=== PATIENT | male | born 1965 | race Caucasian/White ===

== ENCOUNTER 2017-01-19 00:16 | Emergency (ER) | payer BC ==
[~2017-01-19] VITALS: Ht 167.6 cm; Wt 75.8 kg
[~2017-01-19 00:16] MED LIST: AUGMENTIN875 MG OR; AUGMENTIN875TAB PO; CRESTOR10 MG OR; FAMVIR500 MG PO; FLONASE0.05 %; FLORASTOR250 M1 PO; METRONIDAZOLE500 MG PO; NEXIUM20 M1 PO; PHENERGAN25 MG/TAB PO; SANCUSO TD; SUCRALFATE1 GM PO; TOPROL XL50 MG PO; XANAX0.25 MG PO; ZOFRAN4 M1 PO; ZOVIRAX52 TOP
[2017-01-19 01:10] VITALS: BP 136/84
== END 2017-01-19 01:10 | disposition left against medical advice (07) | DRG 951 ==
LOC: ED 00:16 → LWOBS 00:59
DX: Z91.19 Patient's noncompliance with other medical treatment and regimen (principal)

== ENCOUNTER 2017-04-04 21:24 | Emergency (ER) | payer BC ==
[~2017-04-04] VITALS: Ht 167.6 cm; Wt 79.0 kg
[2017-04-04] MEDS ORDERED: BAYER ASPIRIN E81 MG PO (21:50)
[2017-04-04] MEDS ORDERED: ELIQUIS5 MG PO (21:52)
[2017-04-04] MEDS ORDERED: CYANOCOBAL1000 MCG/M IM (21:52)
[2017-04-04] MEDS ORDERED: NEURONTIN300 MG PO ×2 (21:54→21:55)
[2017-04-04] MEDS ORDERED: FAMVIR500 MG PO (21:56)
[2017-04-04] MEDS ORDERED: ZYRTEC10 MG PO (21:58)
[2017-04-04] MEDS ORDERED: AMOXICILLIN500 MG PO (22:42)
[2017-04-04 22:45] VITALS: BP 136/70
== END 2017-04-04 22:40 | disposition home or self-care (01) | DRG 605 ==
LOC: ED 21:24
DX: S00.512A Abrasion of oral cavity, initial encounter (principal); R58 Hemorrhage, not elsewhere classified; X58.XXXA Exposure to other specified factors, initial encounter; Z79.82 Long term (current) use of aspirin; Z79.01 Long term (current) use of anticoagulants

== ENCOUNTER 2017-05-08 11:56 | Emergency (ER) | payer BC ==
[~2017-05-08 11:56] MED LIST changes: +AMOXICILLIN500 MG PO; +BAYER ASPIRIN E81 MG PO; +CYANOCOBAL1000 MCG/M IM; +ELIQUIS5 MG PO; +NEURONTIN300 MG PO; +ZYRTEC10 MG PO
== END 2017-05-08 12:36 | disposition left against medical advice (07) | DRG 951 ==
LOC: ED 11:56 → LWOBS 12:24
DX: Z91.19 Patient's noncompliance with other medical treatment and regimen (principal)

== ENCOUNTER 2017-05-08 13:21 | Emergency (ER) | payer BC ==
[~2017-05-08] VITALS: Ht 167.6 cm; Wt 82.0 kg
[2017-05-08 14:15] VITALS: BP 126/71
== END 2017-05-08 14:15 | disposition left against medical advice (07) | DRG 951 ==
LOC: ED 13:21
DX: Z91.19 Patient's noncompliance with other medical treatment and regimen (principal)

== ENCOUNTER 2017-07-05 23:01 | Emergency (ER) | payer BC ==
[~2017-07-05] VITALS: Ht 167.6 cm; Wt 72.6 kg
[2017-07-05] MEDS ORDERED: SINGULAIR10 MG PO (23:20)
[2017-07-05] MEDS ORDERED: LASIX 40 MG TAB40 MG PO (23:20)
[2017-07-05] MEDS ORDERED: POTASSIUM CHLO20 ME1 PO (23:21)
[2017-07-05 23:43] VITALS: BP 161/90
== END 2017-07-05 23:43 | disposition left against medical advice (07) | DRG 69 ==
LOC: ED 23:01 → AMA 23:39 → ED 23:39 → AMA 23:43
DX: G45.9 Transient cerebral ischemic attack, unspecified (principal); C79.31 Secondary malignant neoplasm of brain; R53.1 Weakness; R47.89 Other speech disturbances; Z91.19 Patient's noncompliance with other medical treatment and regimen; Z85.118 Personal history of other malignant neoplasm of bronchus and lung; Z92.21 Personal history of antineoplastic chemotherapy; Z92.3 Personal history of irradiation